=== PATIENT | female | born 1970 | race Caucasian/White ===

== ENCOUNTER 2018-06-09 15:09 | Emergency (ER) | payer OTHER ==
--- NOTE | 2018-06-09 15:29 | PDOC ---
Rapid Medical Evaluation Time Seen by Provider: 06/09/18 15:27 Medical Evaluation: Allergies Allergy/AdvReac Type Severity Reaction Status Date / Time codeine [Codeine] Allergy Vomiting Verified 04/20/16 10:40 06/09/18 15:27 I performed a brief in-person evaluation of this patient. Chief complaint: Scalp pain and swelling s/p using hair dye on Tuesday, history of lupus. Pertinent physical exam findings: Mild erythema face and scalp. No other rash. No tongue/lip swelling. I have ordered the following: None Patient to proceed to the ED for further evaluation. Discharge Disposition - Diagnosis Allergic reaction Qualifiers: Encounter type: initial encounter Qualified Code(s): T78.40XA - Allergy, unspecified, initial encounter - Referrals - Patient Instructions - Post Discharge Activity
[2018-06-09 15:32] VITALS: BP 133/94; PULSE 69; TEMP 98.1; BMI 24.0
--- NOTE | 2018-06-09 15:59 | PDOC ---
History of Present Illness - General Chief Complaint: Allergic Reaction Stated Complaint: ALLERGIC REACTION Time Seen by Provider: 06/09/18 15:27 History Source: Patient Exam Limitations: No Limitations - History of Present Illness Initial Comments: 06/09/18 16:46 47 year old female with history lupus and bipolar report allergic reaction after using hair dye last night. Complaining of scalp itching and hairline. Denies coughing, shortness of breath or scratchy throat. Took 25mg of benadryl and still itching 06/09/18 16:48 Timing/Duration: other (last night ) Severity: moderate Modifying Factors: improves with: medication Associated Symptoms: reports: rash Aspirin Received prior to arrival: Yes: no aspirin today Asa Contraindications(Core Measure): No: Allergy Beta Yudi Contraindications(Core Measure): Yes: Not Prescribed Beta Yudi Given by EMS(Core Measure): No Beta Yudi Taken at Home(Core Measure): No Beta Yudi Not Indicated at this Time(Core Measure): No Past History - Travel Traveled outside of the country in the last 30 days: No Close contact w/someone who was outside of country & ill: No - Past Medical History Allergies/Adverse Reactions: Allergies Allergy/AdvReac Type Severity Reaction Status Date / Time codeine [Codeine] Allergy Vomiting Verified 04/20/16 10:40 Home Medications: Ambulatory Orders Aripiprazole [Abilify] 10 mg PO AM 11/23/17 Bupropion HCl [Wellbutrin -] 75 mg PO DAILY 11/23/17 Chlorpromazine [Thorazine -] 150 mg PO HS 11/23/17 Fish Oil/Borage/Flax/Om3,6,9 1 [[place] 3-6-9 1,200 mg Softgel] 1,000 mg PO HS 05/12 Gabapentin [Neurontin] 300 mg PO BID 11/23/17 Gabapentin [Neurontin] 600 mg PO HS 11/23/17 Hydroxychloroquine So4 [Plaquenil -] 200 mg PO BID 11/23/17 Lorazepam [Ativan] 0.5 mg PO BID 11/23/17 Diphenhydramine HCl [Benadryl -] 25 mg PO Q6H 06/09/18 Diphenhydramine HCl [Benadryl -] 50 mg PO Q8H #21 capsule 06/09/18 Hydrocortisone 1% Cream [Hytone 1% Cream -] 1 applic TP BID #1 tube 06/09/18 Prednisone 20 mg PO DAILY #3 tab.ds.pk 06/09/18 Anemia: No Asthma: No Cancer: No Cardiac Disorders: No CVA: No COPD: No CHF: No DVT: No Dementia: No Diabetes: No GI Disorders: No Disorders: No HTN: Yes Hypercholesterolemia: No Liver Disease: No Seizures: No Thyroid Disease: Yes - Surgical History Abdominal Surgery: Yes (tubal ligation) Appendectomy: No Cardiac Surgery: No Cholecystectomy: No Lung Surgery: No Neurologic Surgery: No Orthopedic Surgery: No - Reproductive History (#): 4 Para: 1 Therapeutic (s) & number: Yes (3) - Suicide/Smoking/Psychosocial Hx Smoking Status: Yes Smoking History: Unknown if ever smoked Have you smoked in the past 12 months: Yes Number of Cigarettes Smoked Daily: 20 'Breaking Loose' booklet given: 09/08/12 Hx Alcohol Use: No Drug/Substance Use Hx: No Substance Use Type: None Hx Substance Use Treatment: No Review of Systems - Review of Systems Able to Perform ROS?: Yes Constitutional: No: Chills, Fever, Night Sweats HEENTM: No: Nose Congestion, Hearing Loss, Throat Swelling Respiratory: No: Cough, Orthopnea, Wheezing Cardiac (ROS): No: Edema, Lightheadedness ABD/GI: No: Abdominal Distended, Poor Appetite, Poor Fluid Intake, Indigestion Musculoskeletal: No: Back Pain Integumentary: Yes: Erythema, Flushing, Rash Neurological: No: Headache, Numbness *Physical Exam - Vital Signs Last Vital Signs Temp Pulse Resp BP Pulse Ox 98.1 F 69 18 133/94 99 06/09/18 15:31 06/09/18 15:31 06/09/18 15:31 06/09/18 15:31 06/09/18 15:31 - Physical Exam General Appearance: Yes: Nourished, Appropriately Dressed HEENT: positive: GERI, Pharynx Normal Neck: positive: Supple. 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 Plan: benadryl IM observe skin rash lessening around forehead by hairline rx: benadryl hydrocortisone prednisone *DC/Admit/Observation/Transfer Diagnosis at time of Disposition: Allergic reaction Qualifiers: Encounter type: initial encounter Qualified Code(s): T78.40XA - Allergy, unspecified, initial encounter - Discharge Dispostion Disposition: HOME Condition at time of disposition: Good Decision to Admit order: No - Prescriptions Prescriptions: Diphenhydramine HCl [Benadryl -] 50 mg PO Q8H #21 capsule Hydrocortisone 1% Cream [Hytone 1% Cream -] 1 applic TP BID #1 tube Prednisone 20 mg PO DAILY #3 tab.ds.pk - Referrals Referrals: Rafael Oliver MD [Primary Care Provider] - Call tomorrow (Call for follow up appointment ) - Patient Instructions Printed Discharge Instructions: DI for Eye Allergic Reaction Additional Instructions: Please take medication as prescribed Return to emergency room for worsening of symptoms of difficulty breathing Stop using that brand hair dye - Post Discharge Activity Forms/Work/School Notes: Back to Work
[2018-06-09] MEDS ORDERED: diphenhydrAMINE HCL 25 MG CAPSULE (FP) PO ONE (16:51)
[2018-06-09] MEDS ORDERED: predniSONE 20 MG TABLET (UD) PO ONE (16:58)
[2018-06-09] MEDS ORDERED: predniSONE 20 MG TABLET (UD) ONE ×2 (17:00→17:02)
== END 2018-06-09 17:03 | disposition home or self-care (01) ==
LOC: JERFT 15:09
PROC: 3E023GC Introduction of Other Therapeutic Substance into Muscle, Percutaneous Approach (ICD-10-PCS; principal; 2018-06-09)
DX: L29.8 Other pruritus (principal); T49.4X5A Adverse effect of keratolytics, keratoplastics, and other hair treatment drugs and preparations, initial encounter; Y92.018 Other place in single-family (private) house as the place of occurrence of the external cause
CPT/HCPCS: 96372; 99281-25

== ENCOUNTER 2019-01-11 08:44 | Emergency (ER) | payer OTHER ==
[2019-01-11 09:02] VITALS: BMI 24.9
--- NOTE | 2019-01-11 09:22 | PDOC ---
Attending Attestation - Resident Resident Name: RonXavierBerenice Chino - HPI HPI: 01/11/19 14:25 Pt presents to the ED complaining of L flank pain without nausea, vomiting, fever, dysuria or hematuria that awoke her at 5 am. History of renal stones and reports that this pain feels similar. - Physicial Exam PE: 01/11/19 14:28 agree with resident exam. PAtient is alert and oriented and in no acute distress. CV: rrr no m/r/g Pulm: CTA b/l abdomen: soft, non tender, non distended, without guarding or rebound. - Medical Decision Making 01/11/19 14:29 Pt presents to the ED complaining of flank pain. Differential included renal stone, pyelonephritis, muscular pain. CT and UA are normal. Pain improved after tylenol and toradol. Will discharge home.
[2019-01-11] MEDS ORDERED: ACETAMINOPHEN INJECTION 100 ML IVPB ONE (09:48)
[2019-01-11] MEDS ORDERED: SODIUM CHLORIDE 0.9% 500 ML INFUS.BAG IV ONE (09:48)
[2019-01-11] MEDS ORDERED: ACETAMINOPHEN 1000 MG/100 ML VIAL (NON FORMULARY) IVPB ONE (09:48)
--- NOTE | 2019-01-11 09:49 | PDOC ---
History of Present Illness - General Chief Complaint: Back Pain Stated Complaint: KIDNEY STONES Time Seen by Provider: 01/11/19 09:17 - History of Present Illness Initial Comments: 01/11/19 09:49 48 y/o F hx of HTN and bipolar disorder presenting to the ED with right flank pain that woke her up from sleep this morning. she describes the pain as steady pressure like pain 7/10 in severity. It is non-radiating pain and she has not taken any medications at home for relief. She has not had any dysuria, frequency, hematuria or foul smelling urine. She denies any nausea, vomiting, diarrhea, loss of bowel or bowel control, numbness, tingling, paresthesias, fevers, chills. Other than a sensation of suprapubic pressure, she denies any abdominal pain. 01/11/19 10:01 Past History - Past Medical History Allergies/Adverse Reactions: Allergies Allergy/AdvReac Type Severity Reaction Status Date / Time codeine [Codeine] Allergy Vomiting Verified 01/11/19 08:59 Home Medications: Ambulatory Orders Aripiprazole [Abilify] 10 mg PO AM 11/23/17 Bupropion HCl [Wellbutrin -] 75 mg PO DAILY 11/23/17 Chlorpromazine [Thorazine -] 150 mg PO HS 11/23/17 Fish Oil/Borage/Flax/Om3,6,9 1 [[place] 3-6-9 1,200 mg Softgel] 1,000 mg PO HS 05/12 Lorazepam [Ativan] 1 mg PO BID 11/23/17 Anemia: No Asthma: No Cancer: No Cardiac Disorders: No CVA: No COPD: No CHF: No DVT: No Dementia: No Diabetes: No GI Disorders: No Disorders: No HTN: Yes Hypercholesterolemia: No Liver Disease: No Seizures: No Thyroid Disease: Yes - Surgical History Abdominal Surgery: Yes (tubal ligation) Appendectomy: No Cardiac Surgery: No Cholecystectomy: No Lung Surgery: No Neurologic Surgery: No Orthopedic Surgery: No - Reproductive History (#): 4 Para: 1 Therapeutic (s) & number: Yes (3) - Immunization History Immunization Up to Date: Yes - Suicide/Smoking/Psychosocial Hx Smoking Status: Yes Smoking History: Never smoked Have you smoked in the past 12 months: Yes Number of Cigarettes Smoked Daily: 20 Information on smoking cessation initiated: No 'Breaking Loose' booklet given: 09/08/12 Hx Alcohol Use: No Drug/Substance Use Hx: No Substance Use Type: None Hx Substance Use Treatment: No Review of Systems - Review of Systems Constitutional: No: Chills, Fever HEENTM: No: Blurred Vision Respiratory: No: Cough, Shortness of Breath Cardiac (ROS): No: Chest Pain ABD/GI: No: Blood Streaked Bowels, Diarrhea : Yes: Symptoms Reported Musculoskeletal: Yes: Symptoms Reported Integumentary: No: Bruising, Change in Color Neurological: No: Headache, Tingling *Physical Exam - Vital Signs Last Vital Signs Temp Pulse Resp BP Pulse Ox 98.5 F 100 H 16 137/73 99 01/11/19 09:00 01/11/19 09:00 01/11/19 09:00 01/11/19 09:00 01/11/19 09:00 - Physical Exam General Appearance: Yes: Nourished, Appropriately Dressed, Other (uncomfortable) HEENT: positive: Normal Voice. negative: Scleral Icterus (R), Scleral Icterus ( L) Neck: positive: Trachea midline, Supple. negative: Tender Respiratory/Chest: positive: Lungs Clear, Normal Breath Sounds. negative: Chest Tender, Respiratory Distress, Accessory Muscle Use Cardiovascular: positive: Regular Rhythm, Regular Rate, S1, S2, Edema. negative : JVD Gastrointestinal/Abdominal: positive: Normal Bowel Sounds, Flat, Soft, Other ( suprapubic tenderness). negative: Pulsatile Mass, Distended, Guarding, Rebound Extremity: positive: Normal Capillary Refill, Normal Inspection, Normal Range of Motion, Other (1+ edema bilateral lower extremities). negative: Calf Tenderness Integumentary: positive: Normal Color, Dry, Warm Neurologic: positive: Fully Oriented, Alert, Normal Mood/Affect, Normal Response ED Treatment Course - LABORATORY CBC & Chemistry Diagram: 01/11/19 10:00 01/11/19 10:00 Medical Decision Making - Medical Decision Making 01/11/19 11:59 48 y/o F hx of HTN and bipolar disorder presenting to the ED with right flank pain that woke her up from sleep this morning. cbc,cmp,ct abdomen and pelvis, ua, urine culture Results Meds: Tylenol 1000mg IV, then Toradol 15 mg IV after pain did not resolve with tylenol Pt given toradol 15mg IV reassesed after 20-30 mins, pain improved Ct abdomen and pelvis : no renal calculi, no hydronephrosis Ua, cbc and cmp unremarkable. Pt to be discharged home 01/11/19 12:04 *DC/Admit/Observation/Transfer Diagnosis at time of Disposition: Flank pain - Discharge Dispostion Disposition: HOME Condition at time of disposition: Stable Decision to Admit order: No - Referrals Referrals: Rafael Oliver MD [Primary Care Provider] - - Patient Instructions Printed Discharge Instructions: DI for Flank Pain, Low Back Pain Additional Instructions: You were seen in the ER for right sided lower back pain. Testing and various studies did not show any signs of a kidney stone. Use ibuprofen as per manufacturers instructions for pain. Do not exceed daily recommended dosing. Exercise and stretch as tolerated to relieve pain. do not stay bedbound, in most cases it makes the pain worse. SEEK MEDICAL CARE IF: You have pain that is not relieved with rest or medicine. You have pain that does not improve in 1 week. You have new symptoms. You are generally not feeling well. SEEK IMMEDIATE MEDICAL CARE IF: You have pain that radiates from your back into your legs. You develop new bowel or bladder control problems. You have unusual weakness or numbness in your arms or legs. You develop nausea or vomiting. You develop abdominal pain. You feel faint. - Post Discharge Activity
[2019-01-11 10:29] LABS: BASO % 0.6 % (0-2.0); EOS % 0.1 % (0-4.5); HEMATOCRIT 46.5 % (32.4-45.2); HEMOGLOBIN 16.3 GM/dL (10.7-15.3); LYMPH % 16.2 % (8-40); MCH 35.5 pg (25.7-33.7); MEAN CELL VOLUME 101.3 fl (80-96); MEAN PLT VOLUME 7.9 fl (7.5-11.1); MONO % 7.9 % (3.8-10.2); NEUT % 75.2 % (42.8-82.8); PLATELET COUNT 296 K/MM3 (134-434); RBC 4.59 M/mm3 (3.60-5.2); RDW 13.7 % (11.6-15.6); WHITE BLOOD COUNT 6.1 K/mm3 (4.0-10.0)
[2019-01-11 11:05] LABS: URINE APPEARANCE CLEAR; URINE BILIRUBIN NEGATIVE (NEGATIVE); URINE COLOR YELLOW; URINE GLUCOSE (UA) NEGATIVE (NEGATIVE); URINE KETONE NEGATIVE (NEGATIVE); URINE LEUK ESTERASE NEGATIVE (NEGATIVE); URINE NITRITE NEGATIVE (NEGATIVE); URINE PROTEIN NEGATIVE (NEGATIVE); URINE UROBILINOGEN 0.2 mg/dL (0.2-1.0)
[2019-01-11 11:11] LABS: ALBUMIN 4.1 g/dl (3.4-5.0); BILIRUBIN,TOTAL 0.4 mg/dL (0.2-1); BLOOD UREA NITROGEN 7.9 mg/dL (7-18); CALCIUM 9.3 mg/dL (8.5-10.1); CREATININE 0.6 mg/dL (0.55-1.3); TOT PROT 7.5 g/dl (6.4-8.2)
[2019-01-11] MEDS ORDERED: KETOROLAC TROMETHAMINE 30 MG/1 ML VIAL IVPUSH ONE (11:29)
[2019-01-11] MEDS ORDERED: KETOROLAC TROMETHAMINE 15 MG/ML VIAL ONE (11:36)
[2019-01-11 12:29] VITALS: BP 114/68; PULSE 74; TEMP 98.3
== END 2019-01-11 12:15 | disposition home or self-care (01) ==
LOC: JER 08:44
PROC: 3E0333Z Introduction of Anti-inflammatory into Peripheral Vein, Percutaneous Approach (ICD-10-PCS; principal; 2019-01-11)
DX: R10.31 Right lower quadrant pain (principal); I10 Essential (primary) hypertension; F31.9 Bipolar disorder, unspecified
CPT/HCPCS: 36415; 74176-TC; 80053; 81003; 84703; 85025; 87086; 99283-25; J0131

== ENCOUNTER 2022-06-26 11:21 | Emergency (ER) | payer OTHER ==
[2022-06-26 11:39] VITALS: BP 141/101; PULSE 109; RESP 20; TEMP 98.9; BMI 23.1
== END 2022-06-26 13:44 | disposition home or self-care (01) ==
LOC: JERFT 11:21
DX: S62.656A Nondisplaced fracture of middle phalanx of right little finger, initial encounter for closed fracture (principal); W01.0XXA Fall on same level from slipping, tripping and stumbling without subsequent striking against object, initial encounter
CPT/HCPCS: 73130-TC-RT-FY; 99283-25

== ENCOUNTER 2022-07-11 10:16 | Emergency (ER) | payer OTHER ==
[2022-07-11 10:27] VITALS: TEMP 97; BMI 23.1
[2022-07-11] MEDS ORDERED: diphenhydrAMINE HCL 50 MG CAPSULE PO ONE (11:47)
[2022-07-11] MEDS ORDERED: predniSONE 20 MG TABLET (UD) PO ONE (11:48)
[2022-07-11] MEDS ORDERED: predniSONE 20 MG TABLET (UD) ONE (11:56)
[2022-07-11] MEDS ORDERED: diphenhydrAMINE HCL 25 MG CAPSULE (FP) PO ONE (11:56)
[2022-07-11 12:53] VITALS: BP 135/95; PULSE 103; RESP 16
== END 2022-07-11 13:10 | disposition home or self-care (01) ==
LOC: JER 10:16
DX: L55.9 Sunburn, unspecified (principal); R23.2 Flushing
CPT/HCPCS: 99283-25

== ENCOUNTER 2022-10-25 12:29 | Emergency (ER) | payer OTHER ==
[2022-10-25 12:32] VITALS: BP 145/92; PULSE 76; RESP 18; TEMP 97; BMI 21.6
[2022-10-25] MEDS ORDERED: LIDOCAINE 5% TOPICAL PATCH TP ONE (13:21)
[2022-10-25] MEDS ORDERED: IBUPROFEN 600 MG TABLET (FP) PO ONE ×2 (13:21→13:25)
[2022-10-25] MEDS ORDERED: ACETAMINOPHEN 500 MG TABLET (FP) PO ONE (13:21)
[2022-10-25] MEDS ORDERED: LIDOCAINE 5% TOPICAL PATCH ONE (13:25)
[2022-10-25] MEDS ORDERED: ACETAMINOPHEN 500 MG TABLET (FP) ONE (13:26)
[2022-10-25] MEDS ORDERED: LIDOCAINE PATCH REMOVAL MC ONE (22:00)
== END 2022-10-25 14:28 | disposition home or self-care (01) ==
LOC: JERFT 12:29
DX: S22.31XA Fracture of one rib, right side, initial encounter for closed fracture (principal); R07.81 Pleurodynia; W01.0XXA Fall on same level from slipping, tripping and stumbling without subsequent striking against object, initial encounter
CPT/HCPCS: 71101-TC-RT-FY; 99283-25

== ENCOUNTER 2023-03-21 11:12 | Emergency (ER) | payer OTHER ==
[2023-03-21] MEDS ORDERED: ACETAMINOPHEN 325 MG TABLET (FP) PO ONE (12:32)
[2023-03-21 12:39] VITALS: BP 146/85; PULSE 75; RESP 20; TEMP 98.7; BMI 20.5
[2023-03-21] MEDS ORDERED: ACETAMINOPHEN 325 MG TABLET (FP) ONE (12:41)
[2023-03-21] MEDS ORDERED: LIDOCAINE 5% TOPICAL PATCH TP ONE (13:02)
[2023-03-21] MEDS ORDERED: LIDOCAINE 4% PATCH TP ONE (13:14)
[2023-03-21] MEDS ORDERED: LIDOCAINE PATCH REMOVAL MC ONE (22:00)
== END 2023-03-21 15:59 | disposition home or self-care (01) ==
LOC: JER 11:12
DX: M54.50 Low back pain, unspecified (principal); W18.2XXA Fall in (into) shower or empty bathtub, initial encounter; Y93.E1 Activity, personal bathing and showering; Y92.002 Bathroom of unspecified non-institutional (private) residence as the place of occurrence of the external cause
CPT/HCPCS: 72170-TC-FY; 72220-TC-FY; 73521-TC-FY; 93005; 93010; 99284-25

== ENCOUNTER 2023-07-29 13:09 | Emergency (ER) | payer OTHER ==
[2023-07-29 13:15] VITALS: TEMP 98; BMI 21.2
[2023-07-29] MEDS ORDERED: ACETAMINOPHEN 325 MG TABLET (FP) ONE (13:32)
[2023-07-29] MEDS: ACETAMINOPHEN 325 MG TABLET (FP) PO ONE (13:33)
[2023-07-29 14:27] VITALS: BP 136/92; PULSE 83; RESP 16
== END 2023-07-29 14:27 | disposition home or self-care (01) ==
LOC: JER 13:09
DX: S00.83XA Contusion of other part of head, initial encounter (principal); S60.222A Contusion of left hand, initial encounter; W01.198A Fall on same level from slipping, tripping and stumbling with subsequent striking against other object, initial encounter
CPT/HCPCS: 70450-TC; 73110-TC-LT-FY; 73130-TC-LT-FY; 99284-25

== ENCOUNTER 2024-10-02 07:32 | Emergency (ER) | payer OTHER ==
[2024-10-02 08:08] VITALS: BMI 18.8
[2024-10-02] MEDS ORDERED: ACETAMINOPHEN INJECTION 100 ML ONE (08:20)
[2024-10-02] MEDS: SODIUM CHLORIDE 1,000 ML IV STA (08:30)
[2024-10-02] MEDS: ACETAMINOPHEN 1000 MG/100 ML BAG IVPB ONE (08:35)
[2024-10-02 08:53] VITALS: TEMP 98.2
[2024-10-02 08:57] LABS: VENOUS O2 SATURATION 55.1 % (70-80); VENOUS PCO2 36.5 mmHg (38-52); VENOUS PH 7.431 (7.310-7.410)
[2024-10-02 09:00] LABS: ABSOLUTE IMMATURE GRANULOCYTES 0.06 x10^3/uL (0.0-0.031); BASOPHILS # 0.01 x10^3/uL (0.01-0.08); EOSINOPHIL % 0.6 % (0.7-5.8); EOSINOPHILS # 0.07 x10^3/uL (0.04-0.36); HEMATOCRIT 48.3 % (34.1-44.9); HEMOGLOBIN 16.6 g/dL (11.2-15.7); MCHC 34.4 g/dl (32.2-35.5); MEAN CELL VOLUME 98.4 fl (79.4-94.8); MEAN PLT VOLUME 8.9 fl (9.4-12.3); MONOCYTE # 0.73 x10^3/uL (0.24-0.86); MONOCYTE % 6.7 % (4.7-12.5); PLATELET COUNT 374 x10^3/uL (182-369); RDW 13.2 % (12.3-16.6)
[2024-10-02 09:26] LABS: POTASSIUM 4.3 mmol/L (3.5-5.1)
[2024-10-02 09:27] LABS: CALCIUM 9.9 mg/dL (8.5-10.1)
[2024-10-02 09:28] LABS: ALBUMIN 3.4 g/dl (3.4-5.0); BLOOD UREA NITROGEN 4.8 mg/dL (7-18); MAGNESIUM 1.8 mg/dL (1.8-2.4)
[2024-10-02 09:31] LABS: CREATININE 0.6 mg/dL (0.55-1.3)
[2024-10-02 09:33] LABS: BILIRUBIN,TOTAL 0.7 mg/dL (0.2-1); TOT PROT 7.8 g/dl (6.4-8.2)
[2024-10-02] MEDS ORDERED: DEXAMETHASONE SOD PHOSPHATE 4 MG/1 ML VIAL ONE (10:15)
[2024-10-02] MEDS ORDERED: ALBUTEROL SO4 2.5/IPRATROPIUM 0.5 INH SOL 3 ML VIAL.NEB. NEB ONE (10:15)
[2024-10-02] MEDS ORDERED: AZITHROMYCIN IVPB 500 MG/250 ML BAG IVPB ONE (10:16)
[2024-10-02] MEDS: DEXAMETHASONE SOD PHOSPHATE 4 MG/1 ML VIAL IVPUSH ONE (10:20)
[2024-10-02] MEDS: ALBUTEROL SO4 2.5/IPRATROPIUM 0.5 INH SOL 3 ML VIAL.NEB. NEB ONE (10:20)
[2024-10-02] MEDS: AZITHROMYCIN IVPB 500 MG in DEXTROSE 5%-WATER - 250 ML IVPB ONE (11:00)
[2024-10-02 12:40] VITALS: BP 120/86; PULSE 78; RESP 19
== END 2024-10-02 13:00 | disposition home or self-care (01) ==
LOC: JER 07:32
PROC: 3E03329 Introduction of Other Anti-infective into Peripheral Vein, Percutaneous Approach (ICD-10-PCS; principal; 2024-10-02)
PROC: 3E033NZ Introduction of Analgesics, Hypnotics, Sedatives into Peripheral Vein, Percutaneous Approach (ICD-10-PCS; 2024-10-02)
PROC: 3E033GC Introduction of Other Therapeutic Substance into Peripheral Vein, Percutaneous Approach (ICD-10-PCS; 2024-10-02)
PROC: 3E0337Z Introduction of Electrolytic and Water Balance Substance into Peripheral Vein, Percutaneous Approach (ICD-10-PCS; 2024-10-02)
PROC: 3E0F7GC Introduction of Other Therapeutic Substance into Respiratory Tract, Via Natural or Artificial Opening (ICD-10-PCS; 2024-10-02)
DX: M54.6 Pain in thoracic spine (principal); R06.02 Shortness of breath
CPT/HCPCS: 0241U-QW; 36415; 71045-TC-FY; 80053; 82803; 82962; 83735; 84484; 85025; 93005; 93010; 99285-25

== ENCOUNTER 2024-12-01 09:11 | Inpatient (IN) | payer OTHER ==
[2024-12-01 09:23] VITALS: BMI 18.0
[2024-12-01] MEDS ORDERED: ACETAMINOPHEN INJECTION 100 ML ONE (10:30)
[2024-12-01] MEDS: ACETAMINOPHEN 1000 MG/100 ML BAG IVPB ONE (10:37)
[2024-12-01 10:47] LABS: ABSOLUTE IMMATURE GRANULOCYTES 0.04 x10^3/uL (0.0-0.031); BASOPHILS # 0.05 x10^3/uL (0.01-0.08); EOSINOPHIL % 1.4 % (0.7-5.8); EOSINOPHILS # 0.13 x10^3/uL (0.04-0.36); MCHC 33.0 g/dl (32.2-35.5); MEAN CELL VOLUME 103.7 fl (79.4-94.8); MEAN PLT VOLUME 9.8 fl (9.4-12.3); MONOCYTE # 0.67 x10^3/uL (0.24-0.86); MONOCYTE % 7.1 % (4.7-12.5); RDW 13.3 % (12.3-16.6)
[2024-12-01 10:55] LABS: INR 0.98 (0.83-1.09); PROTHROMBIN TIME (PATIENT) 10.7 SEC (9.7-13.0)
[2024-12-01 10:57] LABS: ACTIVATED PTT 32.4 SECONDS (25.2-36.5)
[2024-12-01 11:19] LABS: CO2 25.0 mmol/L (21-32); GLUCOSE,RANDOM 87.0 mg/dL (74-106)
[2024-12-01 11:22] LABS: CREATININE 0.6 mg/dL (0.55-1.3); SGOT/AST 27.0 U/L (15-37); SGPT/ALT 26.0 U/L (13-61)
[2024-12-01 11:24] LABS: TOT PROT 8.1 g/dl (6.4-8.2)
[2024-12-01 11:25] LABS: ALK PHOS 103.0 U/L (45-117)
[2024-12-01] MEDS ORDERED: AMPICILLIN NA/SULBACTAM NA 3 GM/100 ML BAG IVPB ONE (13:22)
[2024-12-01] MEDS ORDERED: DOXYCYCLINE HYCLATE 100 MG TABLET PO ONE (13:22)
[2024-12-01] MEDS: AMPICILLIN NA/SULBACTAM NA 3 GM in SODIUM CHLORIDE 100 ML IVPB ONE (13:23)
[2024-12-01] MEDS: DOXYCYCLINE HYCLATE 100 MG TABLET PO ONE (13:24)
[2024-12-01] MEDS ORDERED: MORPHINE SULFATE 2 MG/ML SYRINGE ONE (13:36)
[2024-12-01] MEDS: morphine CARPU-JECT 2 MG/1 ML DISP.SYRIN IVPUSH ONE (13:37)
[2024-12-01] MEDS ORDERED: ALBUTEROL SO4 HFA INHALER IH PRN (14:16)
[2024-12-01] MEDS ORDERED: ACETAMINOPHEN 500 MG TABLET (FP) PO PRN (14:20)
[2024-12-01 15:50] VITALS: BP 125/92; PULSE 101; TEMP 97.3
[2024-12-01 16:21] VITALS: RESP 19
[2024-12-02] MEDS ORDERED: NIFEdipine E.R 60 MG TABLET PO SCH (10:00)
[2024-12-02] MEDS ORDERED: LOSARTAN POTASSIUM 50 MG TABLET PO SCH (10:00)
[2024-12-02] MEDS ORDERED: predniSONE 10 MG TABLET (UD) PO SCH (10:00)
[2024-12-02] MEDS ORDERED: HYDROXYCHLOROQUINE SO4 200 MG TABLET (FP) PO SCH (10:00)
== END 2024-12-01 17:00 | disposition short-term general hospital (02) | DRG 200 ==
LOC: JER 09:11 → JERBED 13:44 → J6S 14:15
PROVIDERS: ADMIT Internal Medicine; ATTEND Internal Medicine
DX: S27.1XXA Traumatic hemothorax, initial encounter (principal); J90 Pleural effusion, not elsewhere classified; S22.32XA Fracture of one rib, left side, initial encounter for closed fracture; J98.11 Atelectasis; J44.9 Chronic obstructive pulmonary disease, unspecified; M32.9 Systemic lupus erythematosus, unspecified; I10 Essential (primary) hypertension; F31.9 Bipolar disorder, unspecified; M35.00 Sjogren syndrome, unspecified; J43.9 Emphysema, unspecified; W19.XXXA Unspecified fall, initial encounter; Y93.9 Activity, unspecified; Y92.89 Other specified places as the place of occurrence of the external cause; Y99.9 Unspecified external cause status
CPT/HCPCS: 36415; 71045-TC-FY; 71275-TC; 80053; 82962; 84484; 84703; 85025; 85610; 85730; 86850; 86900; 86901; 93005; 93010; 99291